=== PATIENT | male | born 1965 | race Caucasian/White ===

== ENCOUNTER → 2016-12-16 | Outpatient (CLI) | payer BC ==
[2016-12-16 12:56] LABS: CALCIUM 8.7 mg/dl (8.5-10.1)
[2016-12-16 13:03] LABS: ALT/SGPT 42 U/L (12-78); AST/SGOT 19 U/L (15-37); BLOOD UREA NITROGEN 16 mg/dl (7-18); BUN/CREATININE RATIO 13.6 (10-20); CARBON DIOXIDE 27 mmol/L (21-32); CHLORIDE 106 mmol/L (98-107); CHOLESTEROL 190 mg/dl (0-200); GLUCOSE 98 mg/dl (70-99); POTASSIUM 4.1 mmol/L (3.5-5.1); SODIUM 141 mmol/L (136-145); TRIGLYCERIDES 157 mg/dl (0-150); VERY LOW DENSITY LIPOPROT CALC 31 mg/dl
[2016-12-16 13:06] LABS: ALB/GLOB RATIO 0.9 (0.9-2); ALKALINE PHOSPHATASE 59 U/L (45-117); CHOLESTEROL/HDL RATIO 5.6; HDL CHOLESTEROL 34 mg/dl; LDL CHOLESTEROL CALCULATED 125 mg/dl
== END | disposition home or self-care (01) ==
LOC: C.LABPVFM 07:50
PROVIDERS: ATTEND Neuromusculoskeletal Medicine & OMM
DX: Z00.00 Encounter for general adult medical examination without abnormal findings (principal)

== ENCOUNTER → 2017-08-28 | Outpatient (CLI) | payer OTHER ==
--- NOTE | 2017-08-28 15:11 | DIAGNOSTIC IMAGING REPORT ---
R ELBOW MIN 3 VIEWS ROUTINE CLINICAL HISTORY: S59.911A Injury of right forearm, initial [id number] Right pain. Trauma. COMPARISON: None. DISCUSSION: The bones and joint spaces appear intact. There is no evidence of fracture, dislocation or bony disease. There is no evidence for soft tissue swelling. IMPRESSION: Negative study. The above report was generated using voice recognition software. It may contain grammatical, syntax or spelling errors. Electronically signed by: Griffin Christine M.D. 08/28/2017 3:10 PM Dictated Date/Time: 08/28/2017 3:09 PM
== END | disposition home or self-care (01) ==
LOC: C.RADBC 14:23
PROVIDERS: ATTEND Neuromusculoskeletal Medicine & OMM
DX: R29.898 Other symptoms and signs involving the musculoskeletal system (principal); S59.911A Unspecified injury of right forearm, initial encounter; X58.XXXA Exposure to other specified factors, initial encounter

== ENCOUNTER → 2017-09-14 | Outpatient (CLI) | payer OTHER ==
[~2017-09-14] MED LIST: CHOL20009 PO; IBUP-1050 PO; LORA10TA51 PO; MULT-506 PO; OXYC-57 PO
== END | disposition home or self-care (01) ==
LOC: C.CPL 13:33
PROVIDERS: ATTEND Orthopaedic Surgery
DX: Z01.810 Encounter for preprocedural cardiovascular examination (principal); Z01.812 Encounter for preprocedural laboratory examination; S46.211A Strain of muscle, fascia and tendon of other parts of biceps, right arm, initial encounter; X58.XXXA Exposure to other specified factors, initial encounter

== ENCOUNTER → 2017-09-17 | Day surgery (SDC) | payer OTHER ==
[2017-09-14 14:43] LABS: BASO % 0.5 %; BASO ABS # 0.03 K/uL (0-0.2); EOS % 0.9 %; EOS ABS # 0.06 K/uL (0-0.5); HEMATOCRIT 44.6 % (42-52); HEMOGLOBIN 15.9 g/dL (14.0-18.0); IG# 0.01 K/uL (0.00-0.02); LYMPH % 27.5 %; LYMPH ABS # 1.74 K/uL (1.2-3.4); MEAN CELL VOLUME 80.9 fL (80-100); MEAN CORPUSCULAR HEMOGLOBIN 28.9 pg (25-34); MEAN CORPUSCULAR HGB CONC 35.7 g/dl (32-36); MEAN PLATELET VOLUME 10.3 fL (7.4-10.4); MONO % 6.3 %; NEUT % 64.6 %; NEUT ABS # 4.08 K/uL (1.4-6.5); PLATELET COUNT 266 K/uL (130-400); RED CELL DISTRIBUTION WIDTH CV 13.2 % (11.5-14.5); WHITE BLOOD COUNT 6.32 K/uL (4.8-10.8)
[2017-09-14 15:47] LABS: BLOOD UREA NITROGEN 17 mg/dl (7-18); CALCIUM 9.2 mg/dl (8.5-10.1); CARBON DIOXIDE 28 mmol/L (21-32); CREATININE 1.16 mg/dl (0.60-1.40); GLUCOSE 103 mg/dl (70-99); POTASSIUM 4.2 mmol/L (3.5-5.1); SODIUM 136 mmol/L (136-145)
[2017-09-16 13:12] VITALS: Ht 180.3 cm; Wt 88.6 kg
[~2017-09-17] VITALS: Ht 180.3 cm; Wt 88.6 kg
[~2017-09-17] MED LIST changes: +BUPIVACAINE 0.25% 30 ML VIAL ONE; +CEFAZOLIN 2000MG IV PUSH 15 ML IV SCH; +EpHEDrine SULFATE 50MG/5ML SYR ONE; +EpINEphrine INJ 1MG/ML AMP 1 MG/ML AMP ONE; +FENTANYL CITRATE INJ 50 MCG/1 ML 2 ML VIAL ONE; +GLYCOPYRROLATE INJ 0.2 MG/ML VIAL ONE; +LACTATED RINGER'S 1000ML 1,000 ML IV SCH; +LIDOCAINE HCL 2% 2 ML VIAL (20MG/ML) ONE; +MIDAZOLAM HCL 1 MG/ML 2ML VIAL ONE; +ONDANSETRON INJ 2 MG/ML 2 ML VIAL IV PRN; +ONDANSETRON INJ 2 MG/ML 2 ML VIAL ONE; +OXYCODONE/ACETAMINOPHEN 5-325 TAB ONE; +OXYCODONE/ACETAMINOPHEN 5-325 TAB PO PRN; +PATIENT'S ALLERGY INFO NEEDS ENTERED SCH; +PATIENT'S HEIGHT AND/OR WEIGHT NEEDED SCH; +PROPOFOL IV EMULSION 10 MG/ML 20 ML VIAL IV ONE; +ROCURONIUM BROMIDE 10 MG/ML 5 ML VIAL IV ONE; +SODIUM CHLORIDE 0.9% 1000ML 1,000 ML IV SCH
--- NOTE | 2017-09-17 06:43 | History & Physical Bridge - SC ---
H&P Re-Evaluation Bridge Note: I have examined the patient, reviewed the History & Physical and in the interval since the performance of the History & Physical I have noted the following changes of clinical significance: No changes noted
--- NOTE | 2017-09-17 07:42 | [facility] Post Operative Brief Note ---
Immediate Operative Summary Operative Date Sep 17, 2017. Pre-Operative Diagnosis Right distal biceps tendon rupture Post-Operative Diagnosis Same as preop Procedure(s) Performed Right Distal Biceps Tendon Repair Surgeon Dr. Brewster Major Gifts Officer Surgeon(s) Oleg Hastings PA-C Estimated Blood Loss 5 mL Findings Consistent with Post-Op Diagnosis Specimens None Anesthesia Type General Complication(s) none Disposition Disposition: Recovery Room / PACU
--- NOTE | 2017-09-17 07:54 | Discharge Instructions-SurgCtr ---
Discharge Instructions Date of Service Sep 17, 2017. Visit Reason for Visit: Right Tendon Biceps Rupture Discharge Discharge Diagnosis / Problem: SAME ABOVE Discharge Goals Goal(s): Decrease discomfort, Improve function Activity Recommendations Activity Limitations: as noted below Lifting Limitations: until after follow-up appointment Exercise/Sports Limitations: until after follow-up appointment Shower/Bathe: may shower/bathe in 3 days Anesthesia . Post Anesthesia Instructions: If you have had General Anesthesia or IV Sedation: * Do not drive today. * Resume driving when surgeon permits. * Do not make important decisions or sign legal documents today. * Call surgeon for: 1. Temperature elevations greater than 101 degrees F. 2. Uncontrollable pain. 3. Excessive bleeding. 4. Persistent nausea and vomiting. 5. Medication intolerance (nausea, vomiting or rash). * For nausea and vomiting use only clear liquids such as: tea, soda, bouillon until nausea subsides, then gradually increase diet as tolerated. * If you have any concerns or questions, call your surgeon's office. If physician is unavailable and it is an emergency, call 911 or go to the nearest emergency room. . Instructions / Follow-Up Instructions / Follow-Up MEDICATIONS: * Resume previous medications unless instructed otherwise by your surgeon. * Always take pain medication on a full stomach or with food to avoid upset stomach. * Do not drink alcohol or drive while taking narcotics. * Ibuprofen or Tylenol may be taken if narcotic not needed. SPECIAL CARE INSTRUCTIONS: __ None _X_ Keep extremity elevated and iced x 48 hours; apply ice 20-30 minutes 8-10 times/day. May remove at night. __ Sling __24 hrs/day __ Remove at night __ Shoulder Immobilizer __ 24 hrs/day __ Remove at night _X_ Dressing __ Maintain until seen in office, may shower with plastic over site _X_ Remove dressings in 24-48 hours and then may shower _X_ Cover incisions with band-aids after showering __ Do not remove steri-strips Call physician if chills or temperature rises above 102 degrees or pain unrelieved by prescribed pain medications at . . Diet Recommendations Home Diet: no limitations Procedures Procedures Performed: Right Distal Biceps Tendon Repair Pending Studies Studies pending at discharge: no Work Instructions Return To Work: after follow-up Lifting Limitations: NO LIFTING WITH RIGHT ARM Medical Emergencies . Who to Call and When: Medical Emergencies: If at any time you feel your situation is an emergency, please call 911 immediately. . Non-Emergent Contact Non-Emergency issues call your: Primary Care Provider Call Non-Emergent contact if: you have a fever, temperature is above 101.5 . . "Provider Documentation" section prepared by Oleg Hastings. .
[2017-09-17 08:25] VITALS: TEMP 36.2
[2017-09-17 09:00] VITALS: BP 123/76; PULSE 75; O2SAT 95
--- NOTE | 2017-09-17 09:02 | Anesthesia Progress Nt - [facility] ---
Anesthesia Post Op Note Date & Time Sep 17, 2017 at 09:02 Vital Signs Pain Intensity: 3 Vital Signs Past 12 Hours Date Time Temp Pulse Resp B/P (MAP) Pulse Ox O2 Delivery O2 Flow Rate FiO2 09/17/17 08:45 72 96/62 (73) 09/17/17 08:25 36.2 82 16 131/83 (99) 95 Room Air 09/17/17 08:16 113/74 09/17/17 08:13 96 15 09/17/17 08:13 94 15 100 09/17/17 08:12 95 20 09/17/17 08:12 96 20 98 09/17/17 08:12 36.9 100 Room Air 09/17/17 08:11 116/78 09/17/17 08:10 91 20 100 09/17/17 08:10 91 20 09/17/17 08:09 99 23 09/17/17 08:09 103 23 95 09/17/17 08:06 126/77 09/17/17 08:04 91 21 09/17/17 08:04 90 21 100 09/17/17 08:01 129/85 09/17/17 07:59 98 15 100 09/17/17 07:59 98 15 09/17/17 07:58 98 19 100 09/17/17 07:58 98 19 09/17/17 07:56 136/75 09/17/17 07:54 142/82 09/17/17 07:53 36.9 104 12 142/82 99 Mask 8 09/17/17 06:40 36.8 83 16 163/95 (117) 98 Room Air Notes Mental Status: alert / awake / arousable, participated in evaluation Pt Amnestic to Procedure: Yes Nausea / Vomiting: adequately controlled Pain: adequately controlled Airway Patency, RR, SpO2: stable & adequate BP & HR: stable & adequate Hydration State: stable & adequate Anesthetic Complications: no major complications apparent
--- NOTE | 2017-09-17 15:17 | OPERATIVE REPORT ---
DATE OF OPERATION: 09/17/2017 PREOPERATIVE DIAGNOSIS: Ruptured right distal biceps tendon. POSTOPERATIVE DIAGNOSIS: Same. PROCEDURE: Open right distal biceps tenodesis. SURGEON: Dr. Benjamin Brewster. NATIONAL ACCOUNT DIRECTOR: Yariel Hastings PA-C, whose assistance was necessary for retraction and closure. ANESTHESIA: General. COMPLICATIONS: None. CONDITION: Stable to PACU. INDICATIONS: Ernestine is a pleasant 62-year-old male who injured his right elbow. MRI and clinical examination were diagnostic for high grade partial tear of the right distal biceps tendon. After failing conservative treatment, he elected to undergo open tenodesis. DESCRIPTION OF PROCEDURE: On 1017 he arrived at [facility] for the above procedure. He was seen in the preoperative holding and the operative extremity was identified and signed. He was given a preoperative antibiotic, taken back to the operating room, laid on the table in supine position and put under general anesthesia. The right elbow was then prepped and draped in sterile fashion. Time-out was done. The patient and operative extremity was properly identified. A midline incision was made between the flexor pronator mass and the extensors. Dissection was taken down through the fascia with care not to disrupt the neurovascular structures. The biceps tendon was identified. An elevator was used to release the remainder of the distal biceps off the radial tuberosity. The biceps tendon was then pulled out of the wound and then whipstitched with an Arthrex FiberLoop suture. An Arthrex distal biceps button was then placed on the tails of the suture. The tendon measured to be a size 7 mm. A 7.5 mm hole was drilled in the radial tuberosity. The biceps button was then passed through the posterior cortex and flipped and a tension slide technique was used to deliver the tendon into the 7.5 mm hole. This gave good fixation. A 7 x 10 mm screw was then placed on the radial aspect and pushed the tendon ulnarly. The tails were then tied. The wound was then irrigated and the tourniquet was released. Hemostasis was easily controlled. The incision was then closed with #3 Vicryl suture and a 4-0 nylon suture. He was placed in a soft compressive dressing, extubated, transferred to a [facility] and taken to the postanesthesia care unit in stable condition. He tolerated the procedure well. I attest to the content of the Intraoperative Record and any orders documented therein. Any exception s are noted below.
== END | disposition home or self-care (01) ==
LOC: X.SURG 06:08
PROVIDERS: ATTEND Orthopaedic Surgery
DX: S46.291A Other injury of muscle, fascia and tendon of other parts of biceps, right arm, initial encounter (principal); K21.9 Gastro-esophageal reflux disease without esophagitis; X58.XXXA Exposure to other specified factors, initial encounter

== ENCOUNTER → 2018-02-19 | Outpatient (CLI) | payer OTHER ==
[~2018-02-19] VITALS: Ht 180.3 cm; Wt 90.6 kg
[~2018-02-19] MED LIST changes: -BUPIVACAINE 0.25% 30 ML VIAL ONE; -CEFAZOLIN 2000MG IV PUSH 15 ML IV SCH; -EpHEDrine SULFATE 50MG/5ML SYR ONE; -EpINEphrine INJ 1MG/ML AMP 1 MG/ML AMP ONE; -FENTANYL CITRATE INJ 50 MCG/1 ML 2 ML VIAL ONE; -GLYCOPYRROLATE INJ 0.2 MG/ML VIAL ONE; -LACTATED RINGER'S 1000ML 1,000 ML IV SCH; -LIDOCAINE HCL 2% 2 ML VIAL (20MG/ML) ONE; -MIDAZOLAM HCL 1 MG/ML 2ML VIAL ONE; -ONDANSETRON INJ 2 MG/ML 2 ML VIAL IV PRN; -ONDANSETRON INJ 2 MG/ML 2 ML VIAL ONE; -OXYCODONE/ACETAMINOPHEN 5-325 TAB ONE; -OXYCODONE/ACETAMINOPHEN 5-325 TAB PO PRN; -PATIENT'S ALLERGY INFO NEEDS ENTERED SCH; -PATIENT'S HEIGHT AND/OR WEIGHT NEEDED SCH; -PROPOFOL IV EMULSION 10 MG/ML 20 ML VIAL IV ONE; -ROCURONIUM BROMIDE 10 MG/ML 5 ML VIAL IV ONE; -SODIUM CHLORIDE 0.9% 1000ML 1,000 ML IV SCH
[2018-02-19 15:09] VITALS: BP 121/84; PULSE 85; Ht 180.3 cm; Wt 90.6 kg
== END | disposition home or self-care (01) ==
LOC: C.NEUR 14:56
PROVIDERS: ATTEND Internal Medicine Pulmonary Disease
DX: G47.30 Sleep apnea, unspecified (principal)